=== PATIENT | female | born 1940 | race Asian ===

== ENCOUNTER 2021-10-24 17:37 | Emergency (ER) | payer BC, MEDICAID ==
[~2021-10-24] VITALS: Ht 149.9 cm; Wt 74.8 kg
--- NOTE | 2021-10-24 17:46 | NUR ---
[id number] FROM HOME C/O R KNEE PAIN S/P GLF. RATES PAIN 5/10. ROSIE PEDAL PULSES PRESENT. WILL CONTINUE TO MONITOR THE PATIENT.
[2021-10-24] MEDS ORDERED: CHLO25TA11 PO (18:03)
[2021-10-24] MEDS ORDERED: LOSA100T31 PO (18:03)
[2021-10-24] MEDS ORDERED: METO-358 PO (18:03)
[2021-10-24] MEDS ORDERED: ATOR40TA PO (18:03)
--- NOTE | 2021-10-24 19:18 | NUR ---
REPORT GIVEN TO NURSE SHAHNAZ FOR [facility]AT[facility]
[2021-10-24] MEDS ORDERED: KETOROLAC TROMETHAMINE INJ 30 MG/ML VIAL ONE (19:28)
[2021-10-24] MEDS ORDERED: KETOROLAC TROMETHAMINE INJ 30 MG/ML VIAL IV ONE (19:30)
[2021-10-24 20:28] LABS: BASOPHILS # (AUTO) 0.1 K/uL (0.0-0.2); BASOPHILS % (AUTO) 0.7 % (0.0-2.0); EOSINOPHILS % (AUTO) 1.9 % (0.0-6.0); HEMATOCRIT 38 % (33-45); HEMOGLOBIN 12.9 g/dL (11.5-14.8); LYMPHOCYTES # (AUTO) 2.9 K/uL (0.8-4.8); MEAN CORPUSCULAR HGB CONC 34 g/dl (31.0-36.0); MEAN CORPUSCULAR VOLUME 93 fL (82-100); MONOCYTES # (AUTO) 0.7 K/uL (0.1-1.30); NEUTROPHILS # (AUTO) 4.7 K/uL (1.8-8.9); NEUTROPHILS % (AUTO) 55.4 % (43.0-81.0); PLATELET COUNT (AUTO) 302 K/uL (150-450); RED BLOOD CELL COUNT(AUTO) 4.05 MIL/uL (4.0-5.2); WHITE BLOOD COUNT (AUTO) 8.5 K/uL (4.3-11.0)
--- NOTE | 2021-10-24 20:42 | NUR ---
COVID SWAB DONE AND SENT TO LAB
--- NOTE | 2021-10-24 21:23 | NUR ---
BOWER CATH F16 INSERTED. DRAINING TO STRAW COLORED URINE 300CC.
--- NOTE | 2021-10-24 21:44 | NUR ---
CALL BACK FROM SRIDHAR BEDOYA PT ACCEPTED TO [facility], RO[address]. [address] [place] [address] # FOR REPORT [phone]. WILL CALL BACK WITH ETA
--- NOTE | 2021-10-24 22:13 | NUR ---
Ambulance ETA is 3am
[2021-10-24 22:22] LABS: CALCIUM, SERUM 9.2 mg/dL (8.5-10.1); CARBON DIOXIDE 28 mmol/L (21-32); CHLORIDE 103 mmol/L (98-107); CREATININE 1.1 mg/dL (0.6-1.3); GLUCOSE 107 mg/dL (74-106); POTASSIUM 3.3 mmol/L (3.5-5.1); SODIUM SERUM 141 mmol/L (136-145); UREA NITROGEN, BLOOD 18 mg/dL (7-18)
--- NOTE | 2021-10-24 23:23 | NUR ---
Daughter cell phone [phone] Zoltan
[2021-10-25] VITALS: BP 139/74
--- NOTE | 2021-10-25 00:48 | NUR ---
REPORT GIVEN TO NURSE ELIZABETH.
--- NOTE | 2021-10-25 01:34 | NUR ---
REPORT GIVEN TO EMS AT BEDSIDE
== END 2021-10-25 01:42 ==
LOC: ER 17:44
DX: S89.91XA Unspecified injury of right lower leg, initial encounter (principal); W01.0XXA Fall on same level from slipping, tripping and stumbling without subsequent striking against object, initial encounter; Y92.039 Unspecified place in apartment as the place of occurrence of the external cause; I10 Essential (primary) hypertension; E11.9 Type 2 diabetes mellitus without complications; Z79.899 Other long term (current) drug therapy; R60.0 Localized edema; Z20.822 Contact with and (suspected) exposure to COVID-19; R26.2 Difficulty in walking, not elsewhere classified; R94.31 Abnormal electrocardiogram [ECG] [EKG]
CPT/HCPCS: 36415; 51701; 71045; 73564; 80048; 83880; 84484; 85025; 87426; 93005; 96374; 99285; J1885; C9803